=== PATIENT | male | born 1955 | race Caucasian/White ===

== ENCOUNTER 2016-12-09 15:13 | Emergency (ER) | payer OTHER ==
[~2016-12-09] VITALS: Ht 170.2 cm; Wt 85.0 kg
[2016-12-09 15:18] VITALS: Ht 170.2 cm; Wt 85.0 kg
--- NOTE | 2016-12-09 17:22 | RADRPT ---
PROCEDURE: Ultrasound of the soft tissues of the right inguinal region. CLINICAL INDICATION: Palpable lesion in the right inguinal region. TECHNIQUE: High-resolution sonography of the right inguinal region at the site of the palpable les ion was performed in the axial and sagittal planes. COMPARISON: None FINDINGS: At the site of the palpable lesion in the right inguinal region, there is a cystic structure with in ternal debris measuring 1.5 x 1.7 x 1.5 cm. There is no abnormality at the site of the palpable lesion. IMPRESSION: 1. Cystic structure with internal debris at the site of the palpable lesion in the right inguinal r egion measuring 1.5 x 1.7 x 1.5 cm. 2. Follow-up ultrasound in 10 days is advised. 3. Any further management regarding the palpable lesion should be based on clinical grounds. RPTAT: QQ .Edward Matamoros MD, Date Time Electronically viewed and signed by .Edward Matamoros MD, on 12/09/2016 17:21 .R/
--- NOTE | 2016-12-09 17:37 | ERD ---
ER Documentation Chief Complaint Date/Time DATE: 12/09/16 TIME: 17:35 Chief Complaint sent by for stat ultrasound right leg HPI Patient is a 61-year-old male who had a stent placed through his right inguinal area last Tuesday and then on Tuesday he began to develop swelling in that area. He called his vice president marketing & development who told him to come into the emergency room to do an ultrasound to rule out pseudoaneurysm. He has no pain there. He does admit to some bruising there however. No chest pain or shortness of breath. ROS All systems reviewed and are negative except as per history of present illness. PMhx/Soc Hx Cardiac Disorders: Yes (HEART STENT) FmHx Family History: No diabetes Physical Exam Vitals Vital Signs Date Time Temp Pulse Resp B/P Pulse Ox O2 Delivery O2 Flow Rate FiO2 12/09/16 15:18 98.6 72 18 140/65 94 Physical Exam Const: [] Head: Atraumatic Eyes: Normal Conjunctiva ENT: Normal External Ears, Nose and Mouth. Neck: Full range of motion..~ No meningismus. Resp: Clear to auscultation bilaterally Cardio: Regular rate and rhythm, no murmurs Abd: Soft, non tender, non distended. Normal bowel sounds Skin: Right inguinal region is ecchymotic, no erythema, no warmth, and the right inguinal area there is a palpable 2 cm nodule that is nontender Procedures/MDM Patient here for ultrasound of the right inguinal area. Vital signs are within normal limits. He has no other symptoms other than the mass that is palpable there. Ultrasound shows a cystic structure with internal debris at the site of the palpable lesion in the right inguinal region measuring 1.5 x 1.7 x 1.5 cm. Both myself and my supervising physician Dr. Moody examined the patient we recommend that he follow-up in 10 days for a follow-up ultrasound or sooner if he notices that the area is getting larger. He is discharged with copies of the ultrasound so we can follow up with his vice president marketing & development. Patient counseled regarding my diagnostic impression and care plan. Prior to discharge all questions answered. Pt agrees with treatment plan and understands strict return precautions. Pt is instructed to follow up with primary care provider within 24- 48 hours. Precautionary instructions provided including instructions to return to the ER if not improving or for any worsening or changing symptoms or concerns. Departure Diagnosis: Primary Impression: Cyst Condition: Stable Patient Instructions: Medical Screening Exam, Nonurgent Additional Instructions: Call your primary care doctor TOMORROW for an appointment during the next 1-2 days.See the doctor sooner or return here if your condition worsens before your appointment time. SYLVIA INIGUEZ PA-C Dec 09, 2016 17:37
[2016-12-09 17:46] VITALS: BP 138/66; PULSE 76; RESP 18; TEMP 98.5
== END 2016-12-09 17:47 | disposition home or self-care (01) ==
LOC: FTE 15:13
DX: R19.07 Generalized intra-abdominal and pelvic swelling, mass and lump (principal)
CPT/HCPCS: 76536